=== PATIENT | female | born 1975 | race Caucasian/White ===

== ENCOUNTER 2020-11-05 18:11 | Emergency (ER) | payer OTHER, SELFPAY ==
[2020-11-05 18:20] VITALS: BP 121/65; PULSE 90; RESP 18; TEMP 36.2; O2SAT 100
--- NOTE | 2020-11-05 19:11 | ED.GENADULT ---
HPI - General Adult General Chief complaint: Urogenital-Female Stated complaint: pos uti Time Seen by Provider: 11/05/20 19:11 Source: patient and RN notes reviewed Mode of arrival: ambulatory Limitations: no limitations History of Present Illness HPI narrative: 45-year-old female presents with urinary complaints for the past 7 days. Hope reports increasing symptoms, today being the worse with itching. Dysuria consist of foul smelling urine, burning, frequency, and urgency.? No treatment.? Denies fever. No significant pelvic pain. No vaginal discharge. No concerns for STDs. Exacerbating factors urinating.? No relieving factors. Denies hematuria or vaginal bleeding. Denies being , LMP October 27, 2020.? No flank pain. Denies nausea, vomiting, and abdominal pain.? Tolerating liquids well.? Remains active. The patient reports she was diagnosed with COVID-19 in May 2020. The patient reports she is not waiting for the results of a COVID-19 lab test. The patient reports she do not have chills, weakness, or fatigue. The patient reports she do not have a new or worsening cough or shortness of breath. Denies chest pain. The patient reports she do not have any rhinorrhea, congestion, sore throat, loss of taste or smell, and diarrhea. Denies recent traveling. Denies concerns for COVID-19 or exposures been home with limited outdoor exposure except for essential household needs, work, and return home. At this time, patient is not suspected of having COVID-19. Some parts of this dictation were generated by voice recognition software and may contain typographical and/or grammatical inaccuracies. Related Data Home Medications Medication Instructions Recorded Confirmed multivitamin [Daily Multivitamin] 1 tablet PO DAILY 11/05/20 11/05/20 Allergies Allergy/AdvReac Type Severity Reaction Status Date / Time Penicillins Allergy Intermediate HIVES Verified 11/05/20 19:40 Review of Systems Review of Systems: Narrative: CONSTITUTIONAL: Denies fever, chills, sweats. EYES: Denies visual changes, redness, discharge. ENT: Denies rhinorrhea, congestion, sore throat, otalgia. CARDIOVASCULAR: Denies chest pain, palpitations, edema. RESPIRATORY: Denies dyspnea, wheezing, cough. GASTROINTESTINAL: Denies abdominal pain, nausea, vomiting, diarrhea. GENITOURINARY: Complains of dysuria (itching, burning, frequency, and urgency). Denies hematuria, abnormal discharge. SKIN: Denies rash or itching. MUSCULOSKELETAL: Denies acute back pain, joint pain, or myalgia. NEUROLOGIC: Denies numbness or focal weakness. PSYCHIATRIC: Denies anxiety or depression. All systems reviewed & are unremarkable except as noted in HPI and below. [facility] Past Medical History Medical History (Updated 11/06/20 @ 00:01 by Terrence Huang) History of PCOS Obesity Vaginal delivery X1, female Surgical History Surgical History (Updated 11/05/20 @ 19:56 by MYLA Oneal) History of adenoidectomy History of cervical cerclage History of tonsillectomy Family History Family History (Updated 11/05/20 @ 19:58 by MYLA Oneal) Father Obesity Mother Uterine cancer Smoker Social History Social History (Updated 11/05/20 @ 19:58 by MYLA Oneal) Smoking status: Never smoker Tobacco type: cigarettes Second hand tobacco smoke exposure: No Alcohol intake: current Substance use: never Living arrangements: with family Occupation/Education: occupation Gender identity (if verbalized by the patient): Female Sexual Orientation (if Verbalized by the Patient): Straight or Heterosexual Comments At time of signature, agree with nurse past medical, surgical, social, and family history.? There is relevant patient's history pertinent to the presenting complaint, no relevant family history pertinent to the presenting complaint. Exam Narrative: Exam Narrative: GENERAL: This is a well-nourished, well-
== END 2020-11-05 19:47 | disposition home or self-care (01) ==
PROVIDERS: Emergency Provider Nurse Practitioner Family; PCP Emergency Medicine
DX: R30.0 Dysuria (principal); E28.2 Polycystic ovarian syndrome; E66.9 Obesity, unspecified; Z68.38 Body mass index [BMI] 38.0-38.9, adult
CPT/HCPCS: 81003; 87086; 99213; G0463

== ENCOUNTER 2022-06-09 18:41 | Emergency (ER) | payer OTHER, SELFPAY ==
[2022-06-09 18:52] VITALS: BP 130/81; PULSE 96; RESP 16; TEMP 36.6; O2SAT 98
--- NOTE | 2022-06-09 19:24 | ED.FEMALEGU ---
HPI - Female Genitourinary General Chief complaint: Urogenital-Female Stated complaint: POSSIBLE YEAST INFECTION Time Seen by Provider: 06/09/22 19:05 Source: patient, RN notes reviewed and old records reviewed Mode of arrival: ambulatory Limitations: no limitations History of Present Illness HPI Narrative: 46-year-old female who presents to [facility] with complaints vaginal discharge which is white and also itching. Patient did a doctor on demand televisit and received 2 doses of Diflucan but symptoms have not completely resolved. Patient report she has burning and itching in perineal area, denies any urgency or frequency of urination or symptoms of UTI.Patient reports that she also tried OTC Monistat. Patient denies any concern for STD exposure. MD elicited complaint: other (yeast) Pertinent past history: other ( patient reports she is prediabetic and has had previous yeast infection) Severity scale (1-10): 3 Quality of pain: burning and other (itching) Related Data Home Medications Medication Instructions Recorded Confirmed spironolactone 100 mg tablet 100 mg PO DAILY 06/09/22 06/09/22 Allergies Allergy/AdvReac Type Severity Reaction Status Date / Time Penicillins Allergy Intermediate HIVES Verified 06/13/22 17:23 Review of Systems Review of Systems: CONSTITUTIONAL: Denies fever, chills, or sweats. CARDIOVASCULAR: Denies chest pain, palpitations, or edema. RESPIRATORY: Denies cough or dyspnea. GASTROINTESTINAL: Denies abdominal pain, nausea, vomiting, or diarrhea. GENITOURINARY: Denies dysuria, frequency, urgency. Denies flank pain or hematuria.reports white discharge without odor that is itchy SKIN: Denies rash or itching. MUSCULOSKELETAL: Denies back pain or myalgia. Denies CVA tenderness NEUROLOGIC: Denies headache All systems reviewed & are unremarkable except as noted in HPI and below PMFSH Past Medical History Medical History (Updated 06/14/22 @ 00:01 by Terrence Huang) History of PCOS Obesity Vaginal delivery X1, female Surgical History Surgical History (Updated 06/13/22 @ 17:55 by Vikki Gaming, MYLA, ) History of adenoidectomy History of cervical cerclage History of partial hysterectomy History of tonsillectomy Family History Family History (Updated 11/05/20 @ 19:58 by MYLA Oneal) Father Obesity Mother Uterine cancer Smoker Social History Social History (Updated 11/05/20 @ 19:58 by MYLA Oneal) Smoking status: Never smoker Tobacco type: cigarettes Second hand tobacco smoke exposure: No Alcohol intake: current Substance use: never Gender identity (if verbalized by the patient): Female Sexual Orientation (if Verbalized by the Patient): Straight or Heterosexual Comments At time of signature, agree with nursing past medical, surgical, social and family history. There is no relevant family history pertinent to the presenting complaint Exam Narrative: GENERAL: Well-appearing, well-nourished, and in no acute distress. HEAD: Normocephalic, atraumatic. NECK: Supple.no lymphadenopathy CHEST: Clear to auscultation. No respiratory distress.SAO2 98% on room air HEART: Regular rate and rhythm. No murmur heard. Normal peripheral pulses. ABDOMEN: Soft, nontender, nondistended, normal active bowel sounds. No CVA tenderness.Patient has white vaginal discharge that is itchy denies any odor, history of yeast infections EXTREMITIES: Normal range of motion. No edema. SKIN: Warm, dry, no rash. NEURO: No focal deficits. Alert and oriented x3. Course Course Emergency Course: Patient is aware of diagnosis, understands and agrees to treatment plan.? Anticipatory guidance given.? Patient agrees to follow-up as directed and is aware of reasons to seek care at the emergency department. Portions of this record may have been created with voice recognition software Level of Care: Express Care Visit Vital Signs Vital signs: Vital Signs
== END 2022-06-09 19:35 | disposition home or self-care (01) ==
PROVIDERS: Emergency Provider Registered Nurse; PCP Emergency Medicine
DX: B37.31 Acute candidiasis of vulva and vagina (principal); E28.2 Polycystic ovarian syndrome; E66.9 Obesity, unspecified
CPT/HCPCS: 99213; G0463

== ENCOUNTER 2022-06-13 17:01 | Emergency (ER) | payer OTHER, SELFPAY ==
[2022-06-13 17:22] VITALS: BP 127/86; PULSE 94; RESP 16; TEMP 36.4; O2SAT 98
[2022-06-13 17:27] VITALS: BP 127/86; PULSE 94; RESP 16; TEMP 36.4; O2SAT 98
--- NOTE | 2022-06-13 17:44 | ED.FEMALEGU ---
HPI - Female Genitourinary General Chief complaint: Urogenital-Female Stated complaint: VAGINAL ITCHING/PELVIC PAIN Time Seen by Provider: 06/13/22 17:33 Source: patient and old records reviewed Mode of arrival: ambulatory Limitations: no limitations History of Present Illness HPI Narrative: Patient presents today complaining of white itchy vaginal discharge that is copious. She was initially treated with Diflucan on 05/22/2022 by telemedicine doctor for possible yeast. She was also seen at [facility] on 06/09/2022 for same complaint as her symptoms had worsened. She was prescribed an additional course of Diflucan that did not provide her any relief. Today she called her OB GYNs office was told to come to urgent care for possible vaginal swab for bacterial vaginosis. Patient is celibate. She has had a partial hysterectomy. Related Data Home Medications Medication Instructions Recorded Confirmed spironolactone 100 mg tablet 100 mg PO DAILY 06/09/22 06/09/22 Allergies Allergy/AdvReac Type Severity Reaction Status Date / Time Penicillins Allergy Intermediate HIVES Verified 06/13/22 17:23 Review of Systems Review of Systems: CONSTITUTIONAL: Denies body aches, fever, chills, or sweats. EYES: Denies visual changes, redness, or discharge. ENT: Denies rhinorrhea, congestion, sore throat, or otalgia. CARDIOVASCULAR: Denies chest pain, palpitations, or edema. RESPIRATORY: Denies cough or dyspnea. GASTROINTESTINAL: Denies abdominal pain, nausea, vomiting, or diarrhea. GENITOURINARY: Denies dysuria or hematuria.+ vaginal discharge SKIN: Denies rash, itching, or wounds. MUSCULOSKELETAL: Denies back pain, joint pain, or myalgia. NEUROLOGIC: Denies headache, numbness, tingling, or weakness. PSYCH: Denies depression or anxiety. [facility] Past Medical History Medical History (Updated 06/13/22 @ 17:58 by Vikki Gaming, MYLA, BC) History of PCOS Obesity Vaginal delivery X1, female Surgical History Surgical History (Updated 06/13/22 @ 17:55 by Vikki Gaming, MYLA, BC) History of adenoidectomy History of cervical cerclage History of partial hysterectomy History of tonsillectomy Family History Family History (Updated 11/05/20 @ 19:58 by MYLA Oneal) Father Obesity Mother Uterine cancer Smoker Social History Social History (Updated 11/05/20 @ 19:58 by MYLA Oneal) Smoking status: Never smoker Tobacco type: cigarettes Second hand tobacco smoke exposure: No Alcohol intake: current Substance use: never Gender identity (if verbalized by the patient): Female Sexual Orientation (if Verbalized by the Patient): Straight or Heterosexual Exam Narrative: GENERAL: Well-appearing, well-nourished, and in no acute distress. HEAD: Normocephalic, atraumatic. EYES: EOMI. No redness or drainage. Conjunctivae normal. ENT: Mucous membranes pink and moist. NECK: Normal AROM. CHEST: No respiratory distress. : Copious white loose vaginal discharge. Vaginal carreno normal. External genitalia normal. MUSCULOSKELETAL: No bony tenderness. EXTREMITIES: Normal range of motion. No edema. SKIN: Warm, dry, no rash. Capillary refill normal. Normal skin turgor. NEURO: No focal deficits. Alert and oriented x3. Gait steady. PSYCH: Normal affect. No signs of depression or anxiety. Course Course Emergency Course: Since patient is not having any urinary symptoms, will wait to treat for UTI who until after culture comes back. Will go ahead and treat her for BV with Flagyl. Will call her with genital culture results. Level of Care: Express Care Visit Vital Signs Vital signs: Vital Signs Temperature 97.5 F L 06/13/22 17:22 Pulse Rate 94 06/13/22 17:22 Respiratory Rate 16 06/13/22 17:22 Blood Pressure 127/86 06/13/22 17:22 Pulse Oximetry 98 06/13/22 17:22 Oxygen Delivery Room Air 06/13/22 17:22 Temperature 97.5 F L 06/13/22 17:27 Pulse Rate
== END 2022-06-13 18:02 | disposition home or self-care (01) ==
PROVIDERS: Emergency Provider Nurse Practitioner; PCP Emergency Medicine
DX: N89.8 Other specified noninflammatory disorders of vagina (principal); R82.90 Unspecified abnormal findings in urine; E28.2 Polycystic ovarian syndrome; E66.9 Obesity, unspecified; Z68.37 Body mass index [BMI] 37.0-37.9, adult
CPT/HCPCS: 81003; 87070; 87077; 87086; 87186; 99214; G0463